=== PATIENT | female | born 1950 | race Two or more races ===

== ENCOUNTER 2023-03-24 19:30 | Emergency (ER) | payer MEDICARE, OTHER ==
[~2023-03-24] VITALS: Ht 165.1 cm; Wt 98.9 kg
[2023-03-24] MEDS ORDERED: KETOROLAC TROMETHAMINE INJ 30 MG/ML VIAL ONE (20:34)
[2023-03-24] MEDS ORDERED: ACETAMINOPHEN ES 500 MG TABLET ONE (20:34)
[2023-03-24] MEDS ORDERED: ACETAMINOPHEN ES 500 MG TABLET PO ONE (21:00)
[2023-03-24] MEDS ORDERED: KETOROLAC TROMETHAMINE INJ 30 MG/ML VIAL IM ONE (21:00)
[2023-03-24 22:26] VITALS: BP 148/68; TEMP 98; O2SAT 99
== END 2023-03-24 22:27 | disposition home or self-care (01) ==
LOC: EDSEX 19:30 → ER 19:48
DX: S70.02XA Contusion of left hip, initial encounter (principal); S80.02XA Contusion of left knee, initial encounter; S40.012A Contusion of left shoulder, initial encounter; I10 Essential (primary) hypertension; F17.200 Nicotine dependence, unspecified, uncomplicated; Z60.2 Problems related to living alone; W18.30XA Fall on same level, unspecified, initial encounter; Y93.01 Activity, walking, marching and hiking; Y92.89 Other specified places as the place of occurrence of the external cause; Y99.8 Other external cause status
CPT/HCPCS: 99284; 96372; 73503; 73564; 73030; J1885; 73502